=== PATIENT | male | born 1965 | race Caucasian/White ===

== ENCOUNTER 2016-12-10 13:46 | Inpatient (IN) | payer SELFPAY ==
[~2016-12-10] VITALS: Ht 182.9 cm; Wt 111.0 kg
[2016-12-10 13:46] VITALS: O2SAT 92
[~2016-12-10 13:46] MED LIST: ALBU0.086 INH; BACT800T5 PO; CYCL-36 PO; FURO20TA PO; GUAI600; HYDR25TA35 OR; IBUP400T20 PO; IPRA.5I; LOVA20TA PO; MOBI7.5T PO; PRED1 PO; PRIL20TA2 PO; RANI300T PO; TRAZ100 PO; VENTAER INH; WAL-10TA2 PO
[2016-12-10 13:48] VITALS: BP 162/79; PULSE 69; RESP 20; TEMP 99.4; O2SAT 94
[2016-12-10] MEDS ORDERED: SODIUM CHLOR 0.9% 1000 ML INJ 1,000 ML IV ONE (13:50)
[2016-12-10 13:52] VITALS: O2SAT 94
--- NOTE | 2016-12-10 14:10 | PD ---
HPI Chief Complaint: Neuro Symptoms/ Deficits Time Seen by Provider: 13:50 Travel History International Travel<30 days: No Contact w/Intl Traveler<30days: No Traveled to known affect area: No History of Present Illness HPI Is a 51-year-old man who presents to the emergency department as a stroke alert. He reported he was feeling well and normal until about 110 or 1:15 this afternoon when he had the abrupt onset of global muteness and inability to move any of his extremities. Denies any history of previous similar process. He is able to follow commands and seems to nod his head yes or no but states he cannot move any other muscles. History Past Medical History Narrative Medical Obtained from recent visit: Hypertension GERD Depression Osteoarthritis Social History Tobacco Use: No Allergies-Medications (Allergen,Severity, Reaction): Coded Allergies: FLAKITO Inhibitors (Verified Allergy, Intermediate, 09/29/15) Uncoded Allergies: demerol (Allergy, Severe, Swelling, 09/19/11) morphine (Allergy, Severe, Swelling, 09/19/11) ampicillin (Adverse Reaction, Severe, Rash, 09/19/11) Reported Meds & Prescriptions Reported Meds & Active Scripts Active Lovastatin 20 Mg Tab 20 Mg PO HS Furosemide 20 Mg Tab 20 Mg PO BID Deltasone (Prednisone) 1 Mg Tab 1 Mg PO BID Bactrim DS (Sulfamethoxazole-Trimethoprim DS) 1 Tab Tab 1 Tab PO BID Trazodone HCl 100 Mg Tab 2 Tab PO HS Mobic (Meloxicam) 7.5 Mg Tab 7.5 Mg PO DAILY Flexeril (Cyclobenzaprine HCl) 10 Mg Tab 10 Mg PO TID Hydralazine HCl 25 Mg Tab 25 Mg OR BID Ventolin Hfa (Albuterol Sulfate) 18 Gm Aero 2 Puff INH Q4H PRN * SHAKE WELL BEFORE USE * Proventil Ud 0.083% (2.5 Mg/3 Ml) (Albuterol Sulfate) 2.5 Mg/3 Ml Inha 2.5 Mg INH Q4 30 Days Resp: Atrovent 0.5 mg/2.5 ml Neb (Ipratropium [place]) 0.5 Mg/2.5 Ml Nebu 0.5 Mg .XX Q6 PRN Reported Loratadine 10 Mg Tab 10 Mg PO DAILY Mucinex 600 Mg Tab (Guaifenesin) 600 Mg Tabcr 600 Mg .XX Ibuprofen 400 Mg Tab 400 Mg PO Q4H PRN Prilosec Otc (Omeprazole Magnesium) 20 Mg Tab 20 Mg PO HS Ranitidine 300 mg (Ranitidine HCl) 300 Mg Tab 1 Tab PO HS Review of Systems ROS Limitations: Clinical Condition Physical Exam Narrative GENERAL: 51-year-old man, laying in bed, immobile, nontoxic appearing. SKIN: Focused skin assessment warm/dry. HEAD: Atraumatic. Normocephalic. EYES: Pupils equal and round. No scleral icterus. No injection or drainage. ENT: No nasal bleeding or discharge. Mucous membranes pink and moist. NECK: Trachea midline. No JVD. CARDIOVASCULAR: Regular rate and rhythm. No murmur appreciated. RESPIRATORY: No accessory muscle use. Clear to auscultation. Breath sounds equal bilaterally. GASTROINTESTINAL: Abdomen soft, non-tender, nondistended. Hepatic and splenic margins not palpable. MUSCULOSKELETAL: No obvious deformities. No clubbing. No cyanosis. No edema. NEUROLOGICAL: Awake and alert. Patient's able to follow commands easily. He follows me throughout the room with his eyes. He sort of flinching likely nods yes or no. Asked him questions. He refuses to move any of his facial muscles with the exception of opening and closing his eyes and crunching his eyes shut. Will not stick out his tongue. He will sort of shorter shoulders a little bit when answering questions. He reports a mobility in both upper extremities as well as lower extremities. She will avoid hitting himself in the face with his hands are dropped over his head. He does endorse intact sensation throughout the upper extremity is. He does endorse intact sensation in the lower extremities. He will not move his lower extremities to command. He will likely was toes periodically when not asked to to reposition himself. He will flinch a little bit when checking sensation. Data Data Last Documented VS Vital Signs Date Time Temp Pulse Resp B/P Pulse Ox O2 Delivery O2 Flow Rate FiO2 12/10/16 14:33 68 20 145/83 95 12/10/16 13:52 Nasal Cannula 2 12/10/16 13:48 99.4 Orders Diet Npo (12/10/16 Lunch) Activity Bed Rest (12/10/16 ) Electrocardiogram (12/10/16 ) I-Stat Creatinine (12/10/16 13:50) I-Stat Profile (12/10/16 13:50) Prothrombin Time / Inr (Pt) (12/10/16 13:50) Act Partial Throm Time (Ptt) (12/10/16 13:50) Complete Blood Count With Diff (12/10/16 13:50) Fibrinogen (12/10/16 13:50) Creatine Kinase (Cpk) (12/10/16 13:50) Troponin I (12/10/16 13:50) Ua Includes Microscopic (12/10/16 13:50) Drug Screen, Random Urine (12/10/16 13:50) Type And Screen (12/10/16 13:50) Ct Brain W/O Iv Contrast(Rout) (12/10/16 ) Cta Brain W Iv Contrast W 3d (12/10/16 13:50) Cta Neck W Iv Contrast W 3d (12/10/16 13:50) Consult Neurology (12/10/16 ) Blood Glucose (12/10/16 13:50) Ecg Monitoring (12/10/16 13:50) Neuro Checks Q2HX12,Q4H (12/10/16 13:50) Nursing Bedside Swallow Assess .ONCE (12/10/16 13:50) Iv Access Insert/Monitor (12/10/16 13:50) NPO (12/10/16 13:50) Oximetry (12/10/16 13:50) Oxygen Administration (12/10/16 13:50) Sodium Chlor 0.9% 1000 Ml Inj (Ns 1000 M (12/10/16 13:50) Resp Oxygen Collins C Titrat 1-4 L (12/10/16 13:50) Cath For Specimen (12/10/16 13:50) (Hub Use Only)Inp Phy Cons/Ref (12/10/16 ) Iohexol 350 Inj (Omnipaque 350 Inj) (12/10/16 14:29) Westergren Sedimentation Rate (12/10/16 15:29) Ondansetron Inj (Zofran Inj) (12/10/16 15:45) Hydralazine Inj (Apresoline Inj) (12/10/16 15:45) Albuterol Neb (Albuterol Neb) (12/10/16 15:45) Scd Bilateral/Knee High GUY.QSHIFT (12/10/16 15:43) Admit Order (Ed Use Only) (12/10/16 ) Albuterol Hfa Inh (Ventolin Hfa Inh) (12/10/16 15:45) Labs Laboratory Tests Test 12/10/16 12/10/16 13:50 14:00 White Blood Count 6.7 TH/MM3 Red Blood Count 5.30 MIL/MM3 Hemoglobin 16.8 GM/DL Hematocrit 48.8 % Mean Corpuscular Volume 92.2 FL Mean Corpuscular Hemoglobin 31.6 PG Mean Corpuscular Hemoglobin 34.3 % Concent Red Cell Distribution Width 13.7 % Platelet Count 157 TH/MM3 Mean Platelet Volume 8.2 FL Neutrophils (%) (Auto) 63.1 % Lymphocytes (%) (Auto) 27.7 % Monocytes (%) (Auto) 8.3 % Eosinophils (%) (Auto) 0.2 % Basophils (%) (Auto) 0.7 % Neutrophils # (Auto) 4.2 TH/MM3 Lymphocytes # (Auto) 1.8 TH/MM3 Monocytes # (Auto) 0.6 TH/MM3 Eosinophils # (Auto) 0.0 TH/MM3 Basophils # (Auto) 0.0 TH/MM3 CBC Comment DIFF FINAL Differential Comment Bedside Hemoglobin 16.7 G/DL Bedside Hematocrit 49.0 % Prothrombin Time 10.6 SEC Prothromb Time International 1.0 RATIO Ratio Activated Partial 30.2 SEC Thromboplast Time Fibrinogen 424 mg/dL Bedside Sodium 141 MMOL/L Bedside Potassium 4.1 MMOL/L Bedside Chloride 105 MMOL/L Bedside Blood Urea Nitrogen 6 MG/DL Bedside Creatinine 0.8 MG/DL Bedside Glucose 104 MG/DL Total Creatine Kinase 142 U/L Troponin I LESS THAN 0.02 NG/ML Blood Type O NEGATIVE Antibody Screen NEGATIVE Blood Bank Comment [facility] Medical Decision Making Medical Screen Exam Complete: Yes Emergency Medical Condition: Yes Interpretation(s) My review of EKG: Normal sinus rhythm at a rate of 65, normal axis, normal intervals, no ischemia. Differential Diagnosis CVA, conversion, spinal cord injury, adverse effect of drugs or medications, other Narrative Course Medical decision making INITIAL: Is a 50-year-old man who presents to the emergency department with global muteness and refusal to move any of the risks extremities. Normal level of consciousness. This is unlikely to represent an acute stroke. Given the abrupt onset of neurologic symptoms, we did call him as a stroke alert. I spoke with the neurologist. His NIH stroke scale would be 21. We'll take him emergently to the CT scanner, and get CT as well as CTA. Given the fact that I think there is unlikely to be benefit of TPA administration, and high risk of harm, will discuss with neurology but I do not think he would be a TPA candidate. 2:20 PM: Received call from radiology. States it suspect hyperdense MCA sign on the right. Went to CT to reevaluate the patient. No change. Instructed nurses mix up TPA. They were in the process of doing CTA. Dr. Melton reviewed the Raw CTA images. No evidence of large vessel occlusion. Reconstructions are pending. Spoke with Dr. Guerrero. My impression is still that this is unlikely to be CVA, and as such patient is likely to have more harm than benefit from TPA administration. Based on presentation, Dr. Guerrero is in agreement. He will come to the bedside to evaluate the patient emergently. 3:45 PM: Patient admitted. I spoke with Dr. Meeks. Patient now sits up from bed. States he feels like he is having anxiety reaction. She has never had similar episodes before. Patient denies any residual symptoms. Diagnosis Primary Impression: Conversion disorder Gaudencio Noe MD Dec 10, 2016 14:10
[2016-12-10 14:12] LABS: I-STAT POTASSIUM 4.1 MMOL/L (3.5-4.9); I-STAT SODIUM 141 MMOL/L (138-146)
[2016-12-10 14:14] LABS: AUTOMATED NEUTROPHIL # 4.2 TH/MM3 (1.8-7.7); BASOPHIL % 0.7 % (0.0-2.0); EOSINOPHIL % 0.2 % (0.0-4.0); HEMATOCRIT 48.8 % (39.0-51.0); HEMO FLAGS DIFF FINAL; LYMPH % 27.7 % (9.0-44.0); LYMPHOCYTE # 1.8 TH/MM3 (1.0-4.8); MEAN CELL VOLUME 92.2 FL (80.0-100.0); MEAN CORPUSCULAR HEMOGLOBIN 31.6 PG (27.0-34.0); MEAN CORPUSCULAR HGB CONC 34.3 % (32.0-36.0); MONO % 8.3 % (0.0-8.0); NEUT % 63.1 % (16.0-70.0); PLATELET COUNT 157 TH/MM3 (150-450); RED CELL DISTRIBUTION WIDTH 13.7 % (11.6-17.2); WHITE BLOOD COUNT 6.7 TH/MM3 (4.0-11.0)
--- NOTE | 2016-12-10 14:21 | RADRPT ---
EXAM DATE/TIME: 12/10/2016 14:00 [facility] COMPARISON: No previous studies available for comparison. INDICATIONS : Stroke alert; unable to speak or move exrtimities. RADIATION DOSE: 56.35 CTDIvol (mGy) This report was called by Fantasma to Dr. Noe at 1412 MEDICAL HISTORY : Non-responsive. SURGICAL HISTORY : Non-responsive. ENCOUNTER: Initial ACUITY: 1 day PAIN SCALE: Non-responsive LOCATION: cranial TECHNIQUE: Multiple contiguous axial images were obtained of the head. Using automated exposure control and adj ustment of the mA and/or kV according to patient size, radiation dose was kept as low as reasonably a chievable to obtain optimal diagnostic quality images. DICOM format image data is available electro nically for review and comparison. FINDINGS: CEREBRUM: The ventricles are normal for age. No evidence of midline shift, mass lesion, hemorrhage or acute in farction. The right M1 segment is slightly dense in the left. No extra-axial fluid collections are se en. POSTERIOR FOSSA: The cerebellum and brainstem are intact. The 4th ventricle is midline. The cerebellopontine angle i s unremarkable. EXTRACRANIAL: The visualized portion of the orbits is intact. SKULL: The calvaria is intact. No evidence of skull fracture. CONCLUSION: 1. No evidence of acute infarct, hemorrhage mass or edema. 2. Mildly dense right MCA. (Followup CTA failed to reveal proximal MCA clot) Casper Warner MD on December 10, 2016 at 14:10 Board Certified Radiologist. This report was verified electronically.
[2016-12-10 14:29] LABS: APTT (PATIENT) 30.2 SEC (24.3-30.1); PROTHROMBIN TIME - PATIENT 10.6 SEC (9.8-11.6)
[2016-12-10] MEDS ORDERED: IOHEXOL 350 MG/ML 10 ML VIAL (for RAD DIAG) IV ONE (14:29)
[2016-12-10 14:33] VITALS: BP 145/83; PULSE 68; RESP 20; O2SAT 95
--- NOTE | 2016-12-10 15:00 | RADRPT ---
EXAM DATE/TIME: 12/10/2016 14:01 [facility] COMPARISON: No previous studies available for comparison. INDICATIONS : Stroke alert; unable to speak or move extremities. IV CONTRAST: 100 cc Omnipaque 350 (iohexol) IV ; Cumulative dose for multiple exams. RADIATION DOSE: 18.34 CTDIvol (mGy) ; Combined studies MEDICAL HISTORY : Non-responsive. SURGICAL HISTORY : Non-responsive. ENCOUNTER: Initial ACUITY: 1 day PAIN SCALE: Non-responsive LOCATION: cranial TECHNIQUE: Volumetric scanning was performed using a multi-row detector CT scanner. The data was post processed with a variety of visualization algorithms including full volume maximum intensity projection, multi -planar sliding thin slab reformation, curved planar reformation, and surface rendering techniques. Using automated exposure control and adjustment of the mA and/or kV according to patient size, radiat ion dose was kept as low as reasonably achievable to obtain optimal diagnostic quality images. DICO M format image data is available electronically for review and comparison. FINDINGS: There is excellent visualization of the major intracranial arteries out to the second-order branch ve ssels. The proximal arterial intracranial vessels are patent without occlusion or significant intraluminal f illing defect. Irregularity is present throughout the anterior and posterior circulation. There is no evidence of focal aneurysm, vascular malformation, high-grade stenosis or mass effect. CONCLUSION: 1. No evidence of occlusive disease or intraluminal filling defects. 2. Generalized luminal irregularity especially in the proximal arterial vessels which may indicate th e presence of vasculitis. 3. No evidence of aneurysm or vascular malformation. Casper Warner MD on December 10, 2016 at 14:53 Board Certified Radiologist. This report was verified electronically.
[2016-12-10 15:10] LABS: CREATINE KINASE 142 U/L (39-308)
--- NOTE | 2016-12-10 15:19 | RADRPT ---
EXAM DATE/TIME: 12/10/2016 14:01 [facility] COMPARISON: No previous studies available for comparison. INDICATIONS : Stroke alert; unable to speak or move extremities. IV CONTRAST: 100 cc Omnipaque 350 (iohexol) IV ; Cumulative dose for multiple exams. RADIATION DOSE: 18.34 CTDIvol (mGy) ; Combined studies MEDICAL HISTORY : Non-responsive. SURGICAL HISTORY : Non-responsive. ENCOUNTER: Initial ACUITY: 1 day PAIN SCALE: 10/10 LOCATION: Bilateral neck Elevated flow velocities and ICA/CCA ratios have been found to correlate with increased degrees of vessel stenosis, calculated as percentage of diameter relative to a normal segment of distal ICA/CCA. TECHNIQUE: Volumetric scanning was performed using a multirow detector CT scanner. The data was post processed with a variety of visualization algorithms including full-volume maximum intensity projection, multip lanar sliding thin-slab reformation, curved-planar reformation, and surface-rendering techniques. Us ing automated exposure control and adjustment of the mA and/or kV according to patient size, radiatio n dose was kept as low as reasonably achievable to obtain optimal diagnostic quality images. DICOM f ormat image data is available electronically for review and comparison. FINDINGS: AORTIC ARCH: There is a three-vessel origin of the great vessels from the aorta. No evidence of ostial narrowing. RIGHT CAROTID: The common carotid artery is intact. The carotid bulb has a normal configuration without ulceration o r narrowing. The internal carotid artery lumen is smooth without stenosis. The external carotid wes ry is intact. LEFT CAROTID: The common carotid artery is intact. The carotid bulb has a normal configuration without ulceration or narrowing. The internal carotid artery lumen is smooth without stenosis. The external carotid ar geoffrey is intact. VERTEBRALS: The vertebral arteries have a symmetric diameter. No stenotic lesions are seen. CONCLUSION: Normal examination. Casper Warner MD on December 10, 2016 at 15:17 Board Certified Radiologist. This report was verified electronically.
--- NOTE | 2016-12-10 15:40 | HHI.HP ---
[facility] Service [facility] Primary Care Physician No Primary Care Physician Admission Diagnosis stroke alert Diagnoses: (1) tia vs cva Diagnosis: Principal Chief Complaint: " stroke alert". Travel History International Travel<30 Days: No Contact w/Intl Traveler <30 Da: No Traveled to Known Affected Are: No History of Present Illness patient is a 51 y/o male with history of hypertension, chronic smoker, COPD who was brought to ER as a 'stroke alert'. he says that when he went outside to smoke. after he went back in he wasn't able to take or move his arms or legs. he says that he's been under a lot of stress at his job recently. he has a history of depression with anxiety attacks. he says that he started to have some palpitation and sob earlier this morning before the incident. he says that he had panic attacks in the past but they were ' milder'. he denies any headache , vision changes or chest pain. at the time of my evaluation he had a normal speech although still with some weakness of the extremities. he denies any suicidal thoughts. Review of Systems Constitutional: DENIES: Fever, Weight loss, Chills, Night Sweats Eyes: DENIES: Blurred vision, Diplopia, Vision loss, Double Vision Ears, nose, mouth, throat: DENIES: Tinnitus, Vertigo, Throat pain, Epistaxis Respiratory: COMPLAINS OF: Shortness of breath, DENIES: Apneas, Cough, Snoring , Wheezing, Hemoptysis, Sputum production Cardiovascular: DENIES: Chest pain, Palpitations, Syncope, Dyspnea on Exertion , PND, Lower Extremity Edema, Orthopnea, Claudication Gastrointestinal: DENIES: Abdominal pain, Black stools, Bloody stools, Constipation, Diarrhea, Nausea, Vomiting, Difficulty Swallowing, Anorexia Genitourinary: DENIES: Urinary frequency, Urgency, Hematuria, Dysuria Musculoskeletal: DENIES: Joint pain, Muscle aches, Stiffness, Joint Swelling Integumentary: DENIES: Rash Neurologic: COMPLAINS OF: Localized weakness, Speech Problems, DENIES: Abnormal gait, Headache, Paresthesias, Seizures, Tremor, Poor Balance Psychiatric: DENIES: Anxiety, Confusion, Mood changes, Depression, Hallucinations, Agitation, Suicidal Ideation, Homicidal Ideation, Delusions Past Family Social History Past Medical History hypertension copd depression Past Surgical History none Reported Medications Lovastatin 20 Mg Tab 20 Mg PO HS Furosemide 20 Mg Tab 20 Mg PO BID Deltasone (Prednisone) 1 Mg Tab 1 Mg PO BID Bactrim DS (Sulfamethoxazole-Trimethoprim DS) 1 Tab Tab 1 Tab PO BID Trazodone Hcl (Trazodone HCl) 100 Mg Tab 2 Tab PO HS Mobic (Meloxicam) 7.5 Mg Tab 7.5 Mg PO DAILY Flexeril (Cyclobenzaprine HCl) 10 Mg Tab 10 Mg PO TID Hydralazine HCl 25 Mg Tab 25 Mg OR BID Ventolin Hfa (Albuterol Sulfate) 18 Gm Aero 2 Puff INH Q4H PRN * SHAKE WELL BEFORE USE * Proventil Ud 0.083% (2.5 Mg/3 Ml) (Albuterol Sulfate) 2.5 Mg/3 Ml Inha 2.5 Mg INH Q4 30 Days Resp: Atrovent 0.5 mg/2.5 ml Neb (Ipratropium [place]) 0.5 Mg/2.5 Ml Nebu 0.5 Mg .XX Q6 PRN Reported Loratadine 10 Mg Tab 10 Mg PO DAILY Mucinex 600 Mg Tab (Guaifenesin) 600 Mg Tabcr 600 Mg .XX Ibuprofen 400 Mg Tab 400 Mg PO Q4H PRN Prilosec Otc (Omeprazole Magnesium) 20 Mg Tab 20 Mg PO HS Ranitidine 300 mg (Ranitidine HCl) 300 Mg Tab 1 Tab PO HS Allergies: Coded Allergies: FLAKITO Inhibitors (Verified Allergy, Intermediate, 09/29/15) Uncoded Allergies: demerol (Allergy, Severe, Swelling, 09/19/11) morphine (Allergy, Severe, Swelling, 09/19/11) ampicillin (Adverse Reaction, Severe, Rash, 09/19/11) Active Ordered Medications Current Medications Sodium Chloride (NS 1000 ml Inj) 1,000 ml @ 70 mls/hr [id number] ONCE IV Last administered on 12/10/16t 14:43; Start 12/10/16 at 13:50; Stop 12/11/16 at 04:07 Iohexol (Omnipaque 350 Inj) 100 ml STK-MED ONCE IV ; Start 12/10/16 at 14:29; Stop 12/10/16 at 14:30; Status DC Family History cancer in sisters and CAD in father. Social History smokes a few cigarettes a day- smokes marijuana occasionally.doesn't drink. Physical Exam Vital Signs Vital Signs Date Time Temp Pulse Resp B/P Pulse Ox O2 Delivery O2 Flow Rate FiO2 12/10/16 14:33 68 20 145/83 95 12/10/16 13:52 94 12/10/16 13:52 Nasal Cannula 2 12/10/16 13:48 99.4 69 20 162/79 94 12/10/16 13:46 92 2.00 12/10/16 13:46 92 Nasal Cannula 2.00 Physical Exam GENERAL: This is a well-nourished, well-developed patient, in no apparent distress. SKIN: No rashes, ecchymoses or lesions. Cool and dry. HEAD: Atraumatic. Normocephalic. No temporal or scalp tenderness. EYES: Pupils equal round and reactive. Extraocular motions intact. No scleral icterus. No injection or drainage. ENT: Nose without bleeding, purulent drainage or septal hematoma. Throat without erythema, tonsillar hypertrophy or exudate. Uvula midline. Airway patent. NECK: Trachea midline. No JVD or lymphadenopathy. Supple, nontender, no meningeal signs. CARDIOVASCULAR: Regular rate and rhythm without murmurs, gallops, or rubs. RESPIRATORY: Clear to auscultation. Breath sounds equal bilaterally. No wheezes , rales, or rhonchi. GASTROINTESTINAL: Abdomen soft, non-tender, nondistended. No hepato-splenomegaly , or palpable masses. No guarding. MUSCULOSKELETAL: Extremities without clubbing, cyanosis, or edema. No joint tenderness, effusion, or edema noted. No calf tenderness. Negative Homans sign bilaterally. NEUROLOGICAL: Awake and alert. Cranial nerves II through XII intact. some weakness of the extremities. Laboratory Laboratory Tests Test 12/10/16 12/10/16 13:50 14:00 White Blood Count 6.7 Red Blood Count 5.30 Hemoglobin 16.8 Hematocrit 48.8 Mean Corpuscular Volume 92.2 Mean Corpuscular Hemoglobin 31.6 Mean Corpuscular Hemoglobin 34.3 Concent Red Cell Distribution Width 13.7 Platelet Count 157 Mean Platelet Volume 8.2 Neutrophils (%) (Auto) 63.1 Lymphocytes (%) (Auto) 27.7 Monocytes (%) (Auto) 8.3 Eosinophils (%) (Auto) 0.2 Basophils (%) (Auto) 0.7 Neutrophils # (Auto) 4.2 Lymphocytes # (Auto) 1.8 Monocytes # (Auto) 0.6 Eosinophils # (Auto) 0.0 Basophils # (Auto) 0.0 CBC Comment DIFF FINAL Differential Comment Bedside Hemoglobin 16.7 Bedside Hematocrit 49.0 Prothrombin Time 10.6 Prothromb Time International 1.0 Ratio Activated Partial 30.2 Thromboplast Time Fibrinogen 424 Bedside Sodium 141 Bedside Potassium 4.1 Bedside Chloride 105 Bedside Blood Urea Nitrogen 6 Bedside Creatinine 0.8 Bedside Glucose 104 Total Creatine Kinase 142 Troponin I LESS THAN 0.02 Blood Type O NEGATIVE Antibody Screen NEGATIVE Blood Bank Comment Result Diagram: 12/10/16 1350 Imaging Last Impressions Neck CTA 12/10/16 1350 Signed Impressions: Service Date/Time: Saturday, December 10, 2016 14:01 - CONCLUSION: Normal examination. Casper Warner MD Head CTA 12/10/16 1350 Signed Impressions: Service Date/Time: Saturday, December 10, 2016 14:01 - CONCLUSION: 1. No evidence of occlusive disease or intraluminal filling defects. 2. Generalized luminal irregularity especially in the proximal arterial vessels which may indicate the presence of vasculitis. 3. No evidence of aneurysm or vascular malformation. Casper Warner MD Head CT 12/10/16 0000 Signed Impressions: Service Date/Time: Saturday, December 10, 2016 14:00 - CONCLUSION: 1. No evidence of acute infarct, hemorrhage mass or edema. 2. Mildly dense right MCA. ( Followup CTA failed to reveal proximal MCA clot) Casper Warner MD Assessment and Plan Assessment and Plan A/P - TIA vc CVA vs panic attack CT head with no acute abnormality- CTA head with no occlusive disease- however questionable evidence of vasculitis keep NPO for now- continue IV fluid- permissive hypertension- continue neuro- check- awaiting neurology evaluation - hypertension; vasotec prn for now -COPD with no exacerbation; neb treatment as needed. -DVT prophylaxis with SCD's Discussed Condition With ER physician and the patient. Physician Certification 2 Midnight Certification Type: Admission for Inpatient Services Order for Inpatient Services The services are ordered in accordance with Medicare regulations or non- Medicare payer requirements, as applicable. In the case of services not specified as inpatient-only, they are appropriately provided as inpatient services in accordance with the 2-midnight benchmark. Estimated LOS (days): 2 days is the estimated time the patient will need to remain in the hospital, assuming treatment plan goals are met and no additional complications. Post-Hospital Plan: Not yet determined Sheba Meeks MD Dec 10, 2016 15:40
[2016-12-10] MEDS ORDERED: ALBUTEROL SULFATE 90 MCG/ACT HFA 18 GM INHALER INH PRN (15:45)
[2016-12-10] MEDS ORDERED: hydrALAZINE HCL 20 MG/ML VIAL IV PUSH PRN (15:45)
[2016-12-10] MEDS ORDERED: ONDANSETRON HCL 4 MG/2 ML VIAL IV PUSH PRN (15:45)
[2016-12-10] MEDS ORDERED: RESP: ALBUTEROL 1.25 MG/3 ML NEB (PRN) NEB (15:45)
[2016-12-10] MEDS ORDERED: NORC5TAB PO (16:56)
[2016-12-10 17:00] LABS: BLOOD, URINE NEG (NEG); GLUCOSE,URINE NEG (NEG); KETONE, URINE 10 mg/dL (NEG); NITRITE,URINE NEG (NEG); PH, URINE 6.5 (5.0-8.5); URINE COLOR LIGHT-YELLOW (YELLW/STRAW)
[2016-12-10 17:05] LABS: AMPHETAMINE, URINE NEG (NEG); BARBITURATES, URINE NEG (NEG); COCAINE, URINE NEG (NEG)
[2016-12-10 17:35] VITALS: BP 125/79; PULSE 58; RESP 19; TEMP 98.5; O2SAT 94
[2016-12-10 20:45] VITALS: BP 109/68; PULSE 58; RESP 16; TEMP 98.3; O2SAT 93
[2016-12-11] VITALS: BP 110/70; PULSE 59; RESP 17; TEMP 97.7; O2SAT 98
[2016-12-11 00:31] VITALS: O2SAT 94
[2016-12-11] MEDS ORDERED: ACETAMINOPHEN/HYDROcodone 325 MG/5 MG TAB PO ONE (00:45)
[2016-12-11 04:20] VITALS: BP 110/69; PULSE 60; RESP 18; TEMP 98; O2SAT 96
--- NOTE | 2016-12-11 07:13 | HHI.PR ---
Review/Management Daily Summary 12/11 alert and normal language motor exam normal psychosomatic disorder neuro gustafson d/c anytime, needs psych follow up Subjective Subjective Comments No acute events reported No headache No chest pain No dyspnea Active Medications Current Medications Medications (Trade) Dose Ordered Sig/[place] Route Start Time Stop Time Status Last Admin (Zofran Inj) 4 mg Q8HR PRN IV PUSH 12/10/16 15:45 (Apresoline Inj) 10 mg Q8HR PRN IV PUSH 12/10/16 15:45 (Ventolin Hfa Inh) 2 puff Q4H PRN INH 12/10/16 15:45 Allergies Allergies Coded Allergies FLAKITO Inhibitors (Verified Allergy, Intermediate, 09/29/15) Uncoded Allergies demerol ( Allergy, Severe, Swelling, 09/19/11) morphine ( Allergy, Severe, Swelling, 09/19/11) ampicillin ( Adverse Reaction, Severe, Rash, 09/19/11) Exam I&O / VS 12/10/16 12/10/16 12/11/16 15:00 23:00 07:00 Intake Total 900 ml Output Total 1000 ml Balance -100 ml Intake Oral 900 ml Output Urine Total 1000 ml # Bowel Movements 0 Vital Signs Date Time Temp Pulse Resp B/P Pulse Ox O2 Delivery O2 Flow Rate FiO2 12/11/16 00:31 94 Nasal Cannula 2.00 12/11/16 00:00 97.7 59 17 110/70 98 12/10/16 20:45 98.3 58 16 109/68 93 12/10/16 17:35 98.5 58 19 125/79 94 12/10/16 14:33 68 20 145/83 95 12/10/16 13:52 94 12/10/16 13:52 Nasal Cannula 2 12/10/16 13:48 99.4 69 20 162/79 94 12/10/16 13:46 92 2.00 12/10/16 13:46 92 Nasal Cannula 2.00 Objective Micro and Labs Laboratory Tests Test 12/10/16 12/10/16 12/10/16 13:50 14:00 16:25 White Blood Count 6.7 Red Blood Count 5.30 Hemoglobin 16.8 Hematocrit 48.8 Mean Corpuscular Volume 92.2 Mean Corpuscular Hemoglobin 31.6 Mean Corpuscular Hemoglobin 34.3 Concent Red Cell Distribution Width 13.7 Platelet Count 157 Mean Platelet Volume 8.2 Neutrophils (%) (Auto) 63.1 Lymphocytes (%) (Auto) 27.7 Monocytes (%) (Auto) 8.3 Eosinophils (%) (Auto) 0.2 Basophils (%) (Auto) 0.7 Neutrophils # (Auto) 4.2 Lymphocytes # (Auto) 1.8 Monocytes # (Auto) 0.6 Eosinophils # (Auto) 0.0 Basophils # (Auto) 0.0 CBC Comment DIFF FINAL Differential Comment Erythrocyte Sedimentation Rate 4 Bedside Hemoglobin 16.7 Bedside Hematocrit 49.0 Prothrombin Time 10.6 Prothromb Time International 1.0 Ratio Activated Partial 30.2 Thromboplast Time Fibrinogen 424 Bedside Sodium 141 Bedside Potassium 4.1 Bedside Chloride 105 Bedside Blood Urea Nitrogen 6 Bedside Creatinine 0.8 Bedside Glucose 104 Total Creatine Kinase 142 Troponin I LESS THAN 0.02 Blood Type O NEGATIVE Antibody Screen NEGATIVE Blood Bank Comment Urine Color LIGHT-YELLOW Urine Turbidity CLEAR Urine pH 6.5 Urine Specific [place] 1.038 Urine Protein NEG Urine Glucose (UA) NEG Urine Ketones 10 Urine Occult Blood NEG Urine Nitrite NEG Urine Bilirubin NEG Urine Urobilinogen LESS THAN 2.0 Urine Leukocyte Esterase NEG Urine WBC LESS THAN 1 Urine Opiates Screen NEG Urine Barbiturates Screen NEG Urine Amphetamines Screen NEG Urine Benzodiazepines Screen NEG Urine Cocaine Screen NEG Urine Cannabinoids Screen POS Jillian Guerrero MD Dec 11, 2016 07:13
[2016-12-11 08:12] VITALS: BP 140/88; PULSE 54; RESP 20; TEMP 97.9; O2SAT 94
[2016-12-11 08:50] VITALS: O2SAT 97
--- NOTE | 2016-12-11 09:14 | HHI.PR ---
Subjective Remarks resting comfortably with no distress. speech is normal and weakness has resolved. d/w the RN and no acute issues over night. Objective Vitals Vital Signs Date Time Temp Pulse Resp B/P Pulse Ox O2 Delivery O2 Flow Rate FiO2 12/11/16 08:50 97 21 12/11/16 08:12 97.9 54 20 140/88 94 12/11/16 04:20 98.0 60 18 110/69 96 12/11/16 00:31 94 Nasal Cannula 2.00 12/11/16 00:00 97.7 59 17 110/70 98 12/10/16 20:45 98.3 58 16 109/68 93 12/10/16 17:35 98.5 58 19 125/79 94 12/10/16 14:33 68 20 145/83 95 12/10/16 13:52 94 12/10/16 13:52 Nasal Cannula 2 12/10/16 13:48 99.4 69 20 162/79 94 12/10/16 13:46 92 2.00 12/10/16 13:46 92 Nasal Cannula 2.00 I/O 12/10/16 12/10/16 12/10/16 12/11/16 12/11/16 12/11/16 07:00 15:00 23:00 07:00 15:00 23:00 Intake Total 900 ml 0 ml Output Total 1000 ml 450 ml Balance -100 ml -450 ml Intake Oral 900 ml 0 ml Output Urine Total 1000 ml 450 ml # Bowel Movements 0 0 Result Diagram: 12/10/16 1350 Imaging Last Impressions Neck CTA 12/10/16 1350 Signed Impressions: Service Date/Time: Saturday, December 10, 2016 14:01 - CONCLUSION: Normal examination. Casper Warner MD Head CTA 12/10/16 1350 Signed Impressions: Service Date/Time: Saturday, December 10, 2016 14:01 - CONCLUSION: 1. No evidence of occlusive disease or intraluminal filling defects. 2. Generalized luminal irregularity especially in the proximal arterial vessels which may indicate the presence of vasculitis. 3. No evidence of aneurysm or vascular malformation. Casper Warner MD Head CT 12/10/16 0000 Signed Impressions: Service Date/Time: Saturday, December 10, 2016 14:00 - CONCLUSION: 1. No evidence of acute infarct, hemorrhage mass or edema. 2. Mildly dense right MCA. ( Followup CTA failed to reveal proximal MCA clot) Casper Warner MD Objective Remarks GENERAL: This is a well-nourished, well-developed patient, in no apparent distress. CARDIOVASCULAR: Regular rate and regular rhythm without murmurs, gallops, or rubs. RESPIRATORY: Clear to auscultation. Breath sounds equal bilaterally. No wheezes , rales, or rhonchi. GASTROINTESTINAL: Abdomen soft, non-tender, nondistended. Normal, active bowel sounds MUSCULOSKELETAL: Extremities without clubbing, cyanosis, or edema. NEURO: Alert & Oriented x4 to person, place, time, situation. Moves all ext x4 Procedures none Medications and IVs Current Medications Sodium Chloride (NS 1000 ml Inj) 1,000 ml @ 70 mls/hr [id number] ONCE IV Last administered on 12/10/16 14:43; Start 12/10/16 at 13:50; Stop 12/11/16 at 04:07 ; Status DC Iohexol (Omnipaque 350 Inj) 100 ml STK-MED ONCE IV ; Start 12/10/16 at 14:29; Stop 12/10/16 at 14:30; Status DC Ondansetron HCl (Zofran Inj) 4 mg Q8HR PRN IV PUSH NAUSEA; Start 12/10/16 at 15 :45 Hydralazine HCl (Apresoline Inj) 10 mg Q8HR PRN IV PUSH SBP>200 OR DBP>110; Start 12/10/16 at 15:45 Albuterol Sulfate (Albuterol Neb) 1.25 mg Q4HR NEB PRN NEB SHORTNESS OF BREATH ; Start 12/10/16 at 15:45 Albuterol Sulfate (Ventolin Hfa Inh) 2 puff Q4H PRN INH SHORTNESS OF BREATH; Start 12/10/16 at 15:45 Acetaminophen/ Hydrocodone Bitart ([place] 5-325 Mg) 1 tab ONCE ONCE PO Last administered on 12/11/16 00:56; Start 12/11/16 at 00:45; Stop 12/11/16 at 00:46 ; Status DC A/P Assessment and Plan - 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 neurology f/u appreciated and cleared for discharge. psych f/u as outpatient. - hypertension; resume home meds upon discharge. -COPD with no exacerbation; neb treatment as needed. -DVT prophylaxis with SCD's Discharge Planning dc home today. see med list. f/u; pcp and psych. Sheba Meeks MD Dec 11, 2016 09:14
--- NOTE | 2016-12-11 09:16 | HHI.DS ---
Discharge Summary Admission Date Dec 10, 2016 at 15:48 Discharge Date: Dec 11, 2016 Admitting Diagnosis stroke alert (1) Psychosomatic disorder ICD Code: F45.9 Diagnosis: Principal Procedures none Brief History - From Admission patient is a 51 y/o male with history of hypertension, chronic smoker, COPD who was brought to ER as a 'stroke alert'. he says that when he went outside to smoke. after he went back in he wasn't able to take or move his arms or legs. he says that he's been under a lot of stress at his job recently. he has a history of depression with anxiety attacks. he says that he started to have some palpitation and sob earlier this morning before the incident. he says that he had panic attacks in the past but they were ' milder'. he denies any headache , vision changes or chest pain. at the time of my evaluation he had a normal speech although still with some weakness of the extremities. he denies any suicidal thoughts. CBC/BMP: 12/10/16 1350 Significant Findings Laboratory Tests Test 12/10/16 12/10/16 12/10/16 13:50 14:00 16:25 Monocytes (%) (Auto) 8.3 % (0.0-8.0) Activated Partial 30.2 SEC Thromboplast Time (24.3-30.1) Fibrinogen 424 mg/dL (227-377) Bedside Blood Urea Nitrogen 6 MG/DL (8-26) Bedside Glucose 104 MG/DL (60-95) Troponin I LESS THAN 0.02 NG/ML (0.02-0.05) Urine Specific [place] 1.038 (1.002-1.035) Urine Ketones 10 mg/dL (NEG) Urine Cannabinoids Screen POS (NEG) Imaging Last Impressions Neck CTA 12/10/16 1350 Signed Impressions: Service Date/Time: Saturday, December 10, 2016 14:01 - CONCLUSION: Normal examination. Casper Warner MD Head CTA 12/10/16 135 Signed Impressions: Service Date/Time: Saturday, December 10, 2016 14:01 - CONCLUSION: 1. No evidence of occlusive disease or intraluminal filling defects. 2. Generalized luminal irregularity especially in the proximal arterial vessels which may indicate the presence of vasculitis. 3. No evidence of aneurysm or vascular malformation. Casper Warner MD Head CT 12/10/16 0000 Signed Impressions: Service Date/Time: Saturday, December 10, 2016 14:00 - CONCLUSION: 1. No evidence of acute infarct, hemorrhage mass or edema. 2. Mildly dense right MCA. ( Followup CTA failed to reveal proximal MCA clot) Casper Warner MD PE at Discharge GENERAL: This is a well-nourished, well-developed patient, in no apparent distress. CARDIOVASCULAR: Regular rate and regular rhythm without murmurs, gallops, or rubs. RESPIRATORY: Clear to auscultation. Breath sounds equal bilaterally. No wheezes , rales, or rhonchi. GASTROINTESTINAL: Abdomen soft, non-tender, nondistended. Normal, active bowel sounds MUSCULOSKELETAL: Extremities without clubbing, cyanosis, or edema. NEURO: Alert & Oriented x4 to person, place, time, situation. 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 neurology f/u appreciated and cleared for discharge. psych f/u as outpatient. - hypertension; resume home meds upon discharge. -COPD with no exacerbation; neb treatment as needed. -DVT prophylaxis with SCD's Pt Condition on Discharge: Good Discharge Disposition: Discharge Home Discharge Time: <= 30 minutes Discharge Instructions DIET: Follow Instructions for: Heart Healthy Diet Activities you can perform: Regular-No Restrictions Follow up Referrals: PCP Follow-up Psychiatry Adult Continued Medications: Albuterol Sulfate (Proventil Ud 0.083% (2.5 Mg/3 Ml)) 2.5 Mg/3 Ml Inha 2.5 MG INH Q4 Days 30 Ref 3 BOX Albuterol Sulfate (Ventolin Hfa) 18 Gm Aero 2 PUFF INH Q4H * SHAKE WELL BEFORE USE * PRN SHORTNESS OF BREATH #1 Ref 6 BOX Cyclobenzaprine Hcl (Flexeril) 10 Mg Tab 10 MG PO TID #90 Ref 6 TAB Furosemide (Furosemide) 20 Mg Tab 20 MG PO BID #60 Ref 1 TAB Guaifenesin (Mucinex 600 Mg Tab) 600 Mg Tabcr 600 MG .XX TAB Hydralazine HCl (Hydralazine HCl) 25 Mg Tab 25 MG OR BID #180 Ref 4 TAB Hydrocodone-Acetaminophen ([place]) 5-325 mg Tab 1 TAB PO BID PRN PAIN Ref 0 TAB Ipratropium [place] (Resp: Atrovent 0.5 mg/2.5 ml Neb) 0.5 Mg/2.5 Ml Nebu 0.5 MG .XX Q6 PRN SOB/WHEEZING #300 Ref 0 BOX Loratadine (Loratadine) 10 Mg Tab 10 MG PO DAILY TAB Lovastatin (Lovastatin) 20 Mg Tab 20 MG PO HS #30 Ref 2 TAB Omeprazole Magnesium (Prilosec Otc) 20 Mg Tab 20 MG PO HS TAB Prednisone (Deltasone) 1 Mg Tab 1 MG PO BID #60 TAB Ranitidine 300 mg (Ranitidine 300 mg) 300 Mg Tab 1 TAB PO HS TAB Trazodone HCl (Trazodone HCl) 100 Mg Tab 2 TAB PO HS #60 Ref 2 TAB Discontinued Medications: Ibuprofen (Ibuprofen) 400 Mg Tab 400 MG PO Q4H PRN PAIN SCALE 4 TO 10 TAB Meloxicam (Mobic) 7.5 Mg Tab 7.5 MG PO DAILY #30 Ref 6 TAB Sulfamethoxazole-Trimethoprim DS (Bactrim DS) 1 Tab Tab 1 TAB PO BID #20 TAB Sheba Meeks MD Dec 11, 2016 09:16
[2016-12-11 12:08] VITALS: BP 129/79; PULSE 55; RESP 20; TEMP 97.8; O2SAT 95
[2016-12-11 12:40] LABS: HDL CHOLESTEROL 37.1 MG/DL (40.0-60.0)
--- NOTE | 2016-12-11 16:21 | EKG ---
Date Performed: 12/10/2016 Time Performed: 13:58:04 PTAGE: 51 years EKG: Sinus rhythm NORMAL ECG NO PREVIOUS TRACING DOCTOR: Shree Johnson Interpretating Date/Time 12/11/2016 16:19:56
== END 2016-12-11 12:42 | disposition home or self-care (01) | DRG 882 ==
LOC: NEPE 13:46 → NEDA 15:48 → N05A 16:41
PROVIDERS: ADMIT Internal Medicine; ATTEND Internal Medicine
DX: F45.9 Somatoform disorder, unspecified (principal); I10 Essential (primary) hypertension; J44.9 Chronic obstructive pulmonary disease, unspecified; F44.9 Dissociative and conversion disorder, unspecified; F41.0 Panic disorder [episodic paroxysmal anxiety]; I77.6 Arteritis, unspecified; K21.9 Gastro-esophageal reflux disease without esophagitis; F12.90 Cannabis use, unspecified, uncomplicated; F17.210 Nicotine dependence, cigarettes, uncomplicated; F41.8 Other specified anxiety disorders; M19.90 Unspecified osteoarthritis, unspecified site
CPT/HCPCS: 70450; 70496; 70498; 80061; 80307; 81001; 82435; 82550; 82565; 82947; 84132; 84295; 84484; 84520; 85025; 85384; 85610; 85652; 85730; 86850; 86900; 86901; 93005; 96360; J7030; Q9967